=== PATIENT | female | born 1940 | race Caucasian/White ===

== ENCOUNTER → 2018-08-06 09:47 | Outpatient (CLI) | payer OTHER, SELFPAY ==
[2018-08-06 10:17] LABS: Add Manual Diff / Slide Review NO; Basophils Percent Auto 0.5 % (0-2); Eosinophils Percent Auto 4.4 % (2-4); Hematocrit 40.3 % (36-46); Hemoglobin 13.5 g/dL (12.0-16.0); Lymphocytes Percent Auto 20.2 % (25-40); Mean Corpuscular HGB Conc 33.5 % (30-36); Mean Corpuscular Hemoglobin 31.3 PG (26-34); Mean Corpuscular Volume 93.4 fL (80-100); Monocytes Percent Auto 7.4 % (3-14); Neutrophils Absolute Auto 4000 /uL (3000-5900); Neutrophils Percent Auto 67.5 % (50-75); Platelet Count 195 X10^3/uL (150-400); Red Blood Cell Count 4.32 X10^6/uL (4.0-5.2)
[2018-08-06 11:21] LABS: Alanine Aminotransferase 19 IU/L (9-52); Albumin 3.7 g/dL (3.5-5.0); Albumin Globulin Ratio 1.2 (1.0-2.8); Alkaline Phosphatase 60 U/L (38-126); Aspartate Aminotransferase 20 IU/L (14-36); BUN Creatinine Ratio 21.1 (6-22); Bilirubin Total 0.5 mg/dL (0.2-1.3); Blood Urea Nitrogen 19 mg/dL (7-17); Calcium 9.4 mg/dL (8.4-10.2); Carbon Dioxide 31 mmol/L (22-32); Chloride 106 mmol/L (98-107); Estimated Glomerular Filt Rate > 60.0 mL/min (>60); Globulin 3.1 g/dL (1.7-4.1); Glucose 78 mg/dL (80-110); HEMOLYSIS < 15 (0-50); Potassium 5.2 mmol/L (3.4-5.1); Sodium 145 mmol/L (137-145); Total Protein 6.8 g/dL (6.3-8.2)
== END ==
PROVIDERS: PCP Physician Assistant; Visit Provider Nurse Practitioner Gerontology
DX: C50.912 Malignant neoplasm of unspecified site of left female breast (principal)
CPT/HCPCS: 36415; 80053; 85025

== ENCOUNTER 2018-08-14 13:04 | Oncology outpatient (ONC) | payer OTHER, SELFPAY ==
--- NOTE | 2018-08-14 13:33 | ONC.APRN.PN ---
PN -Subjective Interval history: The patient is a 78 year old Female who is being seen in the clinic 08/14/2018. 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 In clinical remission since her diagnosis was made back on March 2017. Patient started tamoxifen in the adjuvant setting on July 2017. Patient presents today for routine triage. Clinically patient's new chief complaints since her last visit include: None. Patient denies any side effects to her tamoxifen since she started it in June 2017. Specifically denying any chest pains, shortness of breath, no leg swelling or cramping. No hot flashes or night sweats. No vaginal bleeding or abnormal vaginal discharge. Patient's chronic chief complaints at this time include: urinary leakage. For which she has seen a urologist who recommended taking medicine for it but I dont want to do that. 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 Diagnosis/Surgery: -03/11/2017. Core needle biopsy of the left breast 5 o'clock position. Pathology confirming invasive ductal carcinoma involving 2 biopsy cores. Manolo score was 6 of 9 (grade 2). Maximum tumor diameter was 3 mm and 4 mm. No evidence of angiolymphatic invasion no evidence of in situ disease. Immunostains were ER and WI was positive at 100% and 90% respectively HER-2 was negative. -05/08/2017. Partial mastectomy with sentinel node procedure. Patient's primary measured 20 mm in greatest diameter. Manolo grade was 2. Mitotic rate 1. No LV I was seen. Surgical margins were clear. Closest was 1 mm from the anterior remaining margins were greater than 10 mm. 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 Also measuring 20 mm. Cribriform and solid architecture. Necrosis seen. Nuclear grade 2. Surgical margins from DCIS were clear closest 1 mm from the anterior all others greater than 10 mm. One sentinel lymph node was identified negative for disease. Clinical staging workup, pretreatment: -01/10/2017 Bilateral screening mammogram: This reported heterogeneously dense breast tissue. The left breast 12:00 middle depth as an architectural distortion with indistinct margins. No other significant masses calcifications or other findings seen in either breast. -01/29/2017: Ultrasound left breast and left axilla. This identified a hypoechoic irregular mass measuring 10 mm x 13 mm x 13 mm. Mass correlated with the mammogram findings. Increased vascularity in surrounding tissue noted. No abnormalities were seen in the left axilla -03/22/2017 whole-body bone scan. Negative for metastatic bone disease. Prognosis: -06/04/2017. Predict [facility] online: 5 and 10 year overall survival 82 and 57% respectively. -Patient reports no desire to contemplate chemotherapy. Therefore Oncotype DX was not ordered. -07/08/2017 echocardiogram. EF at 60-65%. No significant valvular heart disease. Adjuvant therapy: -07/16/2017-Present. Tamoxifen 20 mg daily ?5 years. 2) Osteopenia: Patient last bone density was in 2011. Patient currently on calcium and vitamin D. Home Medications and Allergies Home Medications Medication Instructions Recorded Confirmed Type calcium acetate 600 mg PO Q DAY #0 06/15/16 08/14/18 History glucosamine sulfate [Genicin] 500 mg PO #0 06/15/16 History tamoxifen 20 mg PO QDAY #90 tab 11/14/17 Rx [AREDS] PO Q DAY #0 02/18/18 History Allergies Allergy/AdvReac Type Severity Reaction Status Date / Time morphine [MORPHINE] Allergy Unknown ITCHING Unverified 02/19/18 11:50 adhesive tape [ADHESIVE TAPE] AdvReac Unknown RASH Unverified 02/19/18 11:50 Exam - Constitutional positive no acute distress, positive average body habitus - Routine HEENT Exam Eye: Present: conjunctivae pink. Absent: conjunctival icterus, scleral injection ENT: Present: mucous membranes moist, oropharynx clear - Routine Neck Exam Present: supple. Absent: lymphadenopathy - Routine Chest/Breast/Axilla Exam Chest wall exam standard: Absent: tenderness, mass Breast: Absent: tenderness, mass Axillae: Absent: lymphadenopathy, mass, tenderness - Routine Respiratory Exam Present: Clear to auscultation bilaterally. Absent: rales, rhonchi, wheezes - Routine Cardiovascular Exam Present: RRR, S1, S2. Absent: murmur, gallop, rubs, JVD - Routine Abdominal Exam Present: soft, normoactive bowel sounds. Absent: tenderness, distended, organomegaly, mass - Routine Extremities Exam Absent: edema, calf tenderness - Routine Skin Exam Present: intact, normal turgor. Absent: petechiae, rash - Routine Neurological Exam Present: alert, oriented X3 - Routine Psychiatric Exam Present: normal affect Assessment and Plan (1) Cancer of left breast Current visit: No Status: Acute The pt is a 78-year-old female with a history of stage II node negative ER positive, her 2-breast cancer. Reassuringly, on exam today no clinical signs or symptoms to suggest disease recurrence. Overall patient reports she is feeling well, tolerating tamoxifen with no adverse effects. Specifically, no vaginal bleeding, no edema. She will be due for annual bilateral screening mammogram in February of 2019. I do not see a recent bone density screen, most recent in her medical record is 2011 demonstrating osteopenia. Patient did take Fosamax for a period of time however stopped a few years ago. We will order her a bone density screen. CBC, CMP unremarkable. Return to clinic in 6 months time for provider visit, CBC, CMP. We will also review the above tests mammogram and bone density screen at this visit. Patient verbalizes understanding and agrees with the above plan of care.
[2018-08-14 14:13] VITALS: BP 134/79; PULSE 77; RESP 18; TEMP 35.7; O2SAT 100
== END 2018-08-15 12:00 ==
LOC: ONC 13:07
PROVIDERS: Family Provider Physician Assistant; PCP Physician Assistant; Visit Provider Nurse Practitioner Gerontology
DX: C50.512 Malignant neoplasm of lower-outer quadrant of left female breast (principal); Z17.0 Estrogen receptor positive status [ER+]; Z79.810 Long term (current) use of selective estrogen receptor modulators (SERMs)
CPT/HCPCS: 99214

== ENCOUNTER → 2019-01-14 14:11 | Outpatient (CLI) | payer OTHER, SELFPAY | PROVIDERS: PCP Physician Assistant; Visit Provider Physician Assistant | DX: M85.852 Other specified disorders of bone density and structure, left thigh (principal); Z78.0 Asymptomatic menopausal state; Z85.3 Personal history of malignant neoplasm of breast; Z90.722 Acquired absence of ovaries, bilateral; Z82.62 Family history of osteoporosis | CPT/HCPCS: 77080 ==

== ENCOUNTER → 2019-02-18 17:57 | Outpatient (CLI) | payer OTHER, SELFPAY | PROVIDERS: PCP Physician Assistant; Visit Provider Nurse Practitioner Gerontology ==

== ENCOUNTER → 2019-02-25 16:06 | Outpatient (CLI) | payer OTHER, SELFPAY ==
--- NOTE | 2019-02-25 | DI.MG.S_ITS ---
BILATERAL DIGITAL SCREENING MAMMOGRAM 3D/2D WITH CAD: 02/25/2019 CLINICAL: Routine screening. Personal history of left breast cancer. Family history of breast cancer. Comparison is made to exams dated: 02/12/2018 mammogram, 01/10/2017 mammogram, and 12/30/2015 mammogram - [facility]. The tissue of both breasts is heterogeneously dense. This may lower the sensitivity of mammography. Current study was also evaluated with a Computer Aided Detection (CAD) system. There are benign post operative findings in the left breast. No significant masses, calcifications, or other findings are seen in either breast. There has been no significant interval change. IMPRESSION: There is no mammographic evidence of malignancy. A 1 year screening mammogram is recommended. This exam was interpreted at Station ID: [id number]. NOTE: For mammograms, a report in lay terms will be sent to the patient. Approximately 15% of breast malignancies will not be visualized mammographically. In the management of a palpable breast mass, a negative mammogram must not discourage biopsy of a clinically suspicious lesion. Electronically Signed By: Wen arrieta/mahesh:02/25/2019 16:52:51 copy to: KAILA CARDONA letter sent: Normal Exam ACR BI-RADS Category 2: Benign Finding(s) 3342F
== END ==
PROVIDERS: PCP Physician Assistant; Visit Provider Physician Assistant
DX: Z12.31 Encounter for screening mammogram for malignant neoplasm of breast (principal); Z85.3 Personal history of malignant neoplasm of breast
CPT/HCPCS: 77063; 77067

== ENCOUNTER → 2020-06-04 12:55 | Outpatient (CLI) | payer MEDICARE, OTHER, SELFPAY ==
--- NOTE | 2020-06-04 13:00 | DI.MG.S_ITS ---
BILATERAL DIGITAL SCREENING MAMMOGRAM 3D/2D WITH CAD POST LUMPECTOMY: 06/04/2020 CLINICAL: Routine screening. Personal history of left breast cancer. Family history of breast cancer. Comparison is made to exams dated: 02/25/2019 mammogram, 02/12/2018 mammogram, and 01/10/2017 mammogram - [facility]. The tissue of both breasts is heterogeneously dense. This may lower the sensitivity of mammography. Current study was also evaluated with a Computer Aided Detection (CAD) system. There are benign calcifications in the right breast. There also are benign post operative findings in the left breast. No significant masses, calcifications, or other findings are seen in either breast. There has been no significant interval change. IMPRESSION: There is no mammographic evidence of malignancy. A 1 year screening mammogram is recommended. This exam was interpreted at Station ID: [id number]. NOTE: For mammograms, a report in lay terms will be sent to the patient. Approximately 15% of breast malignancies will not be visualized mammographically. In the management of a palpable breast mass, a negative mammogram must not discourage biopsy of a clinically suspicious lesion. Electronically Signed By: Skylar summers/mahesh:06/06/2020 09:50:55 copy to: Kiara Pemberton letter sent: Normal Exam ACR BI-RADS Category 2: Benign Finding(s) 3342F
== END ==
PROVIDERS: PCP Student in an Organized Health Care Education/Training Program
DX: Z12.31 Encounter for screening mammogram for malignant neoplasm of breast (principal); Z85.3 Personal history of malignant neoplasm of breast; Z80.3 Family history of malignant neoplasm of breast
CPT/HCPCS: 77063; 77067

== ENCOUNTER → 2020-12-07 15:17 | Outpatient (CLI) | payer MEDICARE, OTHER, SELFPAY ==
[2020-12-07] MEDS: COVID-19 VACC #1, MRNA(MOD) 100 MCG/0.5 ML VIAL IM (15:22)
== END ==
PROVIDERS: PCP Student in an Organized Health Care Education/Training Program; Visit Provider Internal Medicine
DX: Z23 Encounter for immunization (principal)
CPT/HCPCS: 0011A; 91301

== ENCOUNTER → 2021-01-04 14:43 | Outpatient (CLI) | payer MEDICARE, OTHER, SELFPAY ==
[2021-01-04] MEDS: COVID-19 VACC #2, MRNA(MOD) 100 MCG/0.5 ML VIAL IM (14:52)
== END ==
PROVIDERS: PCP Student in an Organized Health Care Education/Training Program; Visit Provider Internal Medicine
DX: Z23 Encounter for immunization (principal)
CPT/HCPCS: 0012A; 91301

== ENCOUNTER → 2021-06-12 15:03 | Outpatient (CLI) | payer MEDICARE, OTHER, SELFPAY ==
--- NOTE | 2021-06-12 | DI.MG.S_ITS ---
BILATERAL DIGITAL SCREENING MAMMOGRAM 3D/2D WITH CAD: 06/12/2021 CLINICAL: Routine screening. Family history of breast cancer. Breast cancer. Comparison is made to exams dated: 06/04/2020 mammogram, 02/25/2019 mammogram, and 02/12/2018 mammogram - [facility]. The tissue of both breasts is heterogeneously dense. This may lower the sensitivity of mammography. Current study was also evaluated with a Computer Aided Detection (CAD) system. There is a possible new 0.7 cm oval equal density asymmetry in the left breast middle depth superior region seen on the mediolateral oblique view only. There are adjacent surgical clips and post-surgical scarring associated with the asymmetry. No other significant masses, calcifications, or other findings are seen in either breast. IMPRESSION: INCOMPLETE: NEEDS ADDITIONAL IMAGING EVALUATION The possible new 0.7 cm oval equal density asymmetry in the left breast is indeterminate. Additional views with possible ultrasound are recommended. This exam was interpreted at Station ID: [id number]. NOTE: For mammograms, a report in lay terms will be sent to the patient. Approximately 15% of breast malignancies will not be visualized mammographically. In the management of a palpable breast mass, a negative mammogram must not discourage biopsy of a clinically suspicious lesion. Electronically Signed By: Markel Ness M.D. at/:06/12/2021 15:47:02 copy to: Kiara Pemberton letter sent: Additional Imaging Needed ACR BI-RADS Category 0: Incomplete 3340F
== END ==
PROVIDERS: PCP Student in an Organized Health Care Education/Training Program; Referring Provider Internal Medicine Hematology & Oncology; Visit Provider Internal Medicine Hematology & Oncology
DX: Z12.31 Encounter for screening mammogram for malignant neoplasm of breast (principal); Z85.3 Personal history of malignant neoplasm of breast; Z80.3 Family history of malignant neoplasm of breast
CPT/HCPCS: 77063; 77067

== ENCOUNTER 2021-07-05 10:30 | Emergency (ER) | payer MEDICARE, OTHER, SELFPAY ==
[2021-07-05 10:41] VITALS: BP 155/75; PULSE 78; RESP 14; TEMP 36.5; O2SAT 98; BMI 29.5
[2021-07-05] MEDS: TET,DIPH,PERTUSS(ACELL),VAC/PF 0.5 ML SYRINGE IM (11:48)
--- NOTE | 2021-07-05 12:13 | ED_ITS ---
HPI - Fall <Shakeel Donato PA-C - Last Filed: 07/05/21 19:35> General Chief Complaint: Fall Stated Complaint: FALL/FOREHEAD & HAND GASHES Time Seen by Provider: 07/05/21 12:04 Source: patient Mode of arrival: Ambulatory History of Present Illness HPI Narrative: Amna presents today with chief complaint of a fall that she sustained earlier today [place]. She reports that she tripped over a slight elevation in the boards and fell forward. She hit her hand on a metal bar which her fingers and cut in between her fingers. She also hit her head on an elevated portion of the walkway. She was able to get up and get herself bandaged with her friends and then came here with her . She denies any loss of consciousness, vision changes, headache, nausea, vomiting or any other acute concerns or complaints. She is not on any blood thinners. She denies any chest pain, shortness of breath, palpitations before or after the fall. Related Data Home Medications Medication Instructions Recorded Confirmed calcium acetate(phosphat bind) 667 600 mg PO Q DAY #0 06/15/16 06/30/20 mg capsule glucosamine sulfate 500 mg capsule 500 mg PO DAILY #0 06/15/16 06/30/20 (Genicin) [AREDS] 1 cap PO Q DAY #0 02/18/18 06/30/20 ibuprofen 600 mg tablet 600 mg PO 3XW 06/30/20 06/30/20 Previous Rx's Medication Instructions Recorded tamoxifen 20 mg tablet 20 mg PO QDAY #90 tab 12/03/19 Allergies Allergy/AdvReac Type Severity Reaction Status Date / Time morphine [MORPHINE] Allergy Unknown ITCHING Verified 07/05/21 10:40 adhesive tape [ADHESIVE TAPE] AdvReac Unknown RASH Verified 07/05/21 10:40 Review of Systems <Shakeel Donato PA-C - Last Filed: 07/05/21 19:35> Review of Systems Narrative: As per HPI Patient History <Shakeel Donato PA-C - Last Filed: 07/05/21 19:35> Social History Smoking Status: Unknown if ever smoked Smoking Status: Unknown if ever smoked alcohol intake frequency: 0-2 drinks per day Substance Use Type: does not use Exam <Shakeel Donato PA-C - Last Filed: 07/05/21 19:35> Narrative Exam Narrative: Exam Narrative: Const General: cooperative, healthy appearing, comfortable, no acute distress, well developed and well groomed Nutritional Appearance: average body habitus Orientation: alert and oriented x3 HENAZ Head: Large linear laceration just above right eyebrow. Approximately 5 cm in length and 1 cm deep. Ears: hearing grossly normal bilaterally, no hemotympanum Nose: external nose normal and nares normal Face and sinus: normal facial exam Neck Neck: normal visual inspection and supple Resp Effort & Inspection: normal respiratory effort, able to speak in complete sentences, no audible wheezes, not labored, no nasal flaring and no respiratory distress Extremities Upper extremities exposed. She has the 1.5 cm laceration in between her left 4th and 5th digits. No significant bony tenderness. Capillary refill is normal. Distal sensation is intact. Full strength and range of motion of her digits. Neuro General: alert, oriented x3, gait normal, tone normal and moves all extremities, cranial nerves 2-12 grossly intact, normal coordination of upper extremities normal finger to nose. Cognition: normal cognition Speech: speech normal Gait: normal gait Psych Appearance: grossly normal and well kempt Mental Status: mental status grossly normal Speech and Movement: speech and movement normal Mood: congruent mood Affect: normal affect Initial Vital Signs Initial Vital Signs: Vital Signs Temperature 97.7 F 07/05/21 10:41 Pulse Rate 78 07/05/21 10:41 Respiratory Rate 14 07/05/21 10:41 Blood Pressure 155/75 H 07/05/21 10:41 Pulse Oximetry 98 07/05/21 10:41 <Elena aTylor MD - Last Filed: 07/06/21 10:46> Initial Vital Signs Initial Vital Signs: Vital Signs Temperature 97.7 F 07/05/21 10:41 Pulse Rate 78 07/05/21 10:41 Respiratory Rate 14 07/05/21 10:41 Blood Pressure 155/75 H 07/05/21 10:41 Pulse Oximetry 98 07/05/21 10:41 Procedures <Shakeel Donato PA-C - Last Filed: 07/05/21 19:35> Laceration Repair Laceration 1: Site: face Side (If applicable): right Size (cm): 5 Description: linear Depth: simple, single layer Local Anesthetic: lidocaine 1% and with epi Amount of anesthesia used (mL): 6 Skin layer closed with: nylon Size (cm): 5-0 Number of sutures: 7 Technique: simple, interrupted Course <Shakeel Donato PA-C - Last Filed: 07/05/21 19:35> Orders Ordered: Discontinued Medications Bacitracin (Bacitracin Oint 0.9 Gm Pckt) 1 applic TOP NOW ONE Stop: 07/05/21 13:36 Last Admin: 07/05/21 13:37 Dose: 1 applic Documented by: ATAYLOR Diphtheria/Tetanus/Acell Pertussis (Tet,Diph,Pertuss(Acell),Vac/Pf 0.5 Ml Syringe) 0.5 ml IM .ONCE ONE Stop: 07/05/21 11:35 Last Admin: 07/05/21 11:48 Dose: 0.5 ml Documented by: ATAYLOR Lidocaine/Epinephrine (Lidocaine 1% W/Epi) 4 ml INJ INTRA-OP ONE Stop: 07/05/21 12:22 Last Admin: 07/05/21 12:25 Dose: 4 ml Documented by: ATATYOR Vital Signs Vital signs: Vital Signs - 8 hr 07/05/21 13:43 Pulse Rate 67 Respiratory Rate 16 Blood Pressure 143/78 H Pulse Oximetry 99 <Elena Taylor MD - Last Filed: 07/06/21 10:46> Orders Ordered: Discontinued Medications Bacitracin (Bacitracin Oint 0.9 Gm Pckt) 1 applic TOP NOW ONE Stop: 07/05/21 13:36 Last Admin: 07/05/21 13:37 Dose: 1 applic Documented by: ATAYLOR Diphtheria/Tetanus/Acell Pertussis (Tet,Diph,Pertuss(Acell),Vac/Pf 0.5 Ml Syringe) 0.5 ml IM .ONCE ONE Stop: 07/05/21 11:35 Last Admin: 07/05/21 11:48 Dose: 0.5 ml Documented by: ATAYLOR Lidocaine/Epinephrine (Lidocaine 1% W/Epi) 4 ml INJ INTRA-OP ONE Stop: 07/05/21 12:22 Last Admin: 07/05/21 12:25 Dose: 4 ml Documented by: ATADENISHA Vital Signs Vital signs: Vital Signs - 8 hr 07/05/21 13:43 Pulse Rate 67 Respiratory Rate 16 Blood Pressure 143/78 H Pulse Oximetry 99 MDM - Fall <Shakeel Donato PA-C - Last Filed: 07/05/21 19:35> [facility] Narrative Medical decision making narrative: I considered getting a CT of her head but after discussion of this with the patient we elected not to at this time. She does not have any underlying bony tenderness, has a normal neurologic examination, does not having a headache, and had no loss of consciousness. She is not on any blood thinners. There is no physical examination evidence of basilar skull fracture with no rhinorrhea or hemotympanum. I considered syncope but patient's symptoms are not consistent with this at this time. History is very suggestive of a mechanical ground level fall. Strict ER return precautions were discussed with the patient. Patient verbalizes understanding and agrees to plan and has no further concerns at this time. Thank you A [id number] system was used with the dictation of this note. Please disregard any spelling or grammatical errors. Discharge Plan Departure Patient Disposition: Home Clinical Impression: Facial laceration Qualifiers: Encounter type: initial encounter Qualified Code(s): S01.81XA - Laceration without foreign body of other part of head, initial encounter Laceration of hand, left Qualifiers: Encounter type: initial encounter Foreign body presence: without foreign body Qualified Code(s): S61.412A - Laceration without foreign body of left hand, initial encounter Activity Restrictions/Additional Instructions: It was very nice to meet you this afternoon. Please monitor for signs of infection which include increased redness, swelling, pain, headache, fever. You experience any of these please return for re-evaluation. Otherwise, follow up with PCP in 5 days for suture removal of face and 10 days for suture removal of hand. Thank you Shakeel Donato PA-C Prescriptions: No Action glucosamine sulfate [Genicin] 500 MG capsule 500 mg PO DAILY Qty: 0 RF: 0 calcium acetate(phosphat bind) 667 MG capsule 600 mg PO Q DAY Qty: 0 RF: 0 [AREDS] 1 cap PO Q DAY Qty: 0 RF: 0 tamoxifen 20 MG tablet 20 mg PO QDAY Qty: 90 RF: 3 ibuprofen 600 mg Tablet 600 mg PO 3XW RF: 0 Referrals: Kiara Pemberton PA-C [Primary Care Provider] - <Elena Taylor MD - Last Filed: 07/06/21 10:46> Cosign ED Attending Cosignature Attestation: I was immediately available in the department for consultation throughout this patient's visit. I agree with documentation as above. Elena Taylor MD
[2021-07-05] MEDS: LIDOCAINE 1% W/EPI 4 ML INJ (12:25)
[2021-07-05] MEDS: BACITRACIN OINT 0.9 GM PCKT 1 APPLIC TOP (13:37)
[2021-07-05 13:43] VITALS: BP 143/78; PULSE 67; RESP 16; O2SAT 99
== END 2021-07-05 13:45 | disposition home or self-care (01) ==
PROVIDERS: Emergency Provider Physician Assistant; PCP Student in an Organized Health Care Education/Training Program
DX: S01.81XA Laceration without foreign body of other part of head, initial encounter (principal); S61.412A Laceration without foreign body of left hand, initial encounter; W19.XXXA Unspecified fall, initial encounter; Z23 Encounter for immunization; R92.8 Other abnormal and inconclusive findings on diagnostic imaging of breast; C50.912 Malignant neoplasm of unspecified site of left female breast; N64.89 Other specified disorders of breast
CPT/HCPCS: 12013; 76642; 77065; 90471; 99283; G0279; 90715

== ENCOUNTER → 2021-07-05 13:24 | Outpatient (CLI) | payer MEDICARE, OTHER, SELFPAY ==
--- NOTE | 2021-07-05 | DI.MG.S_ITS ---
UNILATERAL LEFT DIGITAL DIAGNOSTIC MAMMOGRAM 3D/2D WITH ADDITIONAL VIEWS: 07/05/2021 CLINICAL: Additional evaluation requested from prior study. Comparison is made to exams dated: 06/12/2021 mammogram, 06/04/2020 mammogram, and 02/25/2019 mammogram - [facility]. The tissue of left breast is heterogeneously dense. This may lower the sensitivity of mammography. Decreased conspicuity of the 0.7 cm oval equal density asymmetry in the left breast seen on the MLO only, when compared with most recent screening mammogram. There are surgical clips and a post-surgical scar associated with the asymmetry. No other significant masses or calcifications are seen in the breast. IMPRESSION: INCOMPLETE: NEEDS ADDITIONAL IMAGING EVALUATION Decreased conspicuity of the 0.7 cm oval equal density asymmetry in the left breast. This is favored to represent scarring of fibroglandular tissue. An ultrasound is recommended for further evaluation. This exam was interpreted at Station ID: [id number]. NOTE: For mammograms, a report in lay terms will be sent to the patient. Approximately 15% of breast malignancies will not be visualized mammographically. In the management of a palpable breast mass, a negative mammogram must not discourage biopsy of a clinically suspicious lesion. Electronically Signed By: Bhupendra Mahoney M.D. jr/:07/05/2021 15:25:00 copy to: Kiara LEBRON BI-RADS Category 0: Incomplete 3340F
--- NOTE | 2021-07-05 13:25 | DI.US.S_ITS ---
LIMITED ULTRASOUND OF LEFT BREAST: 07/05/2021 CLINICAL: Patient returns today to evaluate an asymmetry in the left breast. Comparison is made to exams dated: 07/05/2021 mammogram, 06/12/2021 mammogram, 06/04/2020 mammogram, 02/25/2019 mammogram, 02/12/2018 mammogram, and 11/06/2017 mammogram - [facility]. Color flow and real-time ultrasound of the left breast 11-1 o'clock region were performed. Henson scale images of the real-time examination were reviewed. No sonographic correlate for the asymmetry in the left breast near the surgical lumpectomy bed. No significant abnormalities were seen sonographically in the left breast. IMPRESSION: PROBABLY BENIGN Asymmetry in the left breast near the lumpectomy site, seen only mammographically and decreased in conspicuity with spot compression. This is favored to represent fibroglandular tissue or perhaps scarring. However, this is not definitive and a follow-up mammogram in 6 months is recommended to demonstrate stability. This exam was interpreted at Station ID: [id number]. Electronically Signed By: Bhupendra Mahoney M.D. jr/:07/05/2021 15:27:50 copy to: Kiara Pemberton letter sent: Followup Recommended Ultrasound BI-RADS: 3 Probably benign
== END ==
PROVIDERS: PCP Student in an Organized Health Care Education/Training Program; Referring Provider Student in an Organized Health Care Education/Training Program; Visit Provider Student in an Organized Health Care Education/Training Program
DX: R92.8 Other abnormal and inconclusive findings on diagnostic imaging of breast (principal); C50.912 Malignant neoplasm of unspecified site of left female breast; N64.89 Other specified disorders of breast
CPT/HCPCS: 76642; 77065; G0279

== ENCOUNTER → 2022-02-06 12:03 | Outpatient (CLI) | payer MEDICARE, OTHER, SELFPAY ==
--- NOTE | 2022-02-06 | DI.MG.S_ITS ---
UNILATERAL LEFT DIGITAL DIAGNOSTIC MAMMOGRAM 3D/2D SHORT-TERM FOLLOW-UP POST LUMPECTOMY: 02/06/2022 CLINICAL: Short term follow up for the left breast. Comparison is made to exams dated: 07/05/2021 mammogram, 06/12/2021 mammogram, 06/04/2020 mammogram, 07/05/2021 ultrasound, 02/25/2019 mammogram, and 02/12/2018 mammogram - [facility]. The tissue of left breast is heterogeneously dense. This may lower the sensitivity of mammography. There is an asymmetry in the left breast middle depth superior region seen on the mediolateral oblique view only. This is not significantly changed and was not seen on the prior ultrasound. There are surgical clips and a post-surgical scar near the asymmetry. No other significant masses or calcifications are seen in the breast. IMPRESSION: PROBABLY BENIGN The asymmetry in the left breast resembles fibroglandular tissue and is probably benign. A follow-up mammogram in 6 months is recommended to demonstrate stability. Patient will also be due for right breast mammogram at that time. Exam findings were conveyed to the patient. This exam was interpreted at Station ID: [id number]. NOTE: For mammograms, a report in lay terms will be sent to the patient. Approximately 15% of breast malignancies will not be visualized mammographically. In the management of a palpable breast mass, a negative mammogram must not discourage biopsy of a clinically suspicious lesion. Electronically Signed By: Irwin Alvarado M.D. [facility]/:02/06/2022 12:38:42 copy to: Kiara Pemberton letter sent: Followup Recommended ACR BI-RADS Category 3: Probably benign [id number]
== END ==
PROVIDERS: PCP Student in an Organized Health Care Education/Training Program; Referring Provider Internal Medicine Hematology & Oncology; Visit Provider Internal Medicine Hematology & Oncology
DX: R92.8 Other abnormal and inconclusive findings on diagnostic imaging of breast (principal); C50.912 Malignant neoplasm of unspecified site of left female breast; N64.89 Other specified disorders of breast
CPT/HCPCS: 77065; G0279

== ENCOUNTER → 2022-04-11 09:36 | Outpatient (CLI) | payer MEDICARE, OTHER, SELFPAY ==
--- NOTE | 2022-04-11 | DI.RAD.S_ITS ---
PROCEDURE: XR KNEE RT 3V INDICATIONS: Pain in right knee TECHNIQUE: 3 views of the knee were acquired. COMPARISON: Located Within [facility], , KNEE 3V RIGHT, 03/17/2015, 13:27. FINDINGS: Moderate tricompartmental joint space narrowing with moderate-sized marginal osteophytes. Subchondral sclerosis in the lateral tibial plateau. Th no knee joint effusion. Fabella noted. Regional soft tissues normal. ere is also subchondral sclerosis along the articular surface of the patella. IMPRESSION: Moderate tricompartmental osteoarthritis Dictated by: Bhupendra Mahoney M.D. on 04/11/2022 at 12:09 Approved by: Bhupendra Mahoney M.D. on 04/11/2022 at 12:11
== END ==
PROVIDERS: PCP Student in an Organized Health Care Education/Training Program; Referring Provider Student in an Organized Health Care Education/Training Program; Visit Provider Student in an Organized Health Care Education/Training Program
DX: M17.11 Unilateral primary osteoarthritis, right knee (principal); M25.561 Pain in right knee; G89.29 Other chronic pain
CPT/HCPCS: 73562

== ENCOUNTER → 2022-07-12 11:47 | Outpatient (CLI) | payer MEDICARE, OTHER, SELFPAY ==
--- NOTE | 2022-07-12 | DI.MG.S_ITS ---
BILATERAL DIGITAL DIAGNOSTIC MAMMOGRAM 3D/2D SHORT-TERM FOLLOW-UP: 07/12/2022 CLINICAL: Short term follow up of the left breast, due for bilateral imaging. Comparison is made to exams dated: 07/05/2021 mammogram, 02/06/2022 mammogram, 06/12/2021 mammogram, and 06/04/2020 mammogram - [facility]. Both breasts are heterogeneously dense, which may obscure small masses (category c / 51-75% glandular tissue). The asymmetry in the left breast on the screening mammogram from 06/12/21 is not seen on additional views. No other significant masses, calcifications, or other findings are seen in either breast. IMPRESSION: BENIGN The left breast asymmetry seen on the screening mammogram from 2020 likely respresents superimposed fibroglandular tissue and is benign. There is no mammographic evidence of malignancy. A 1 year screening mammogram is recommended. This exam was interpreted at Station ID: [id number]. NOTE: For mammograms, a report in lay terms will be sent to the patient. Approximately 15% of breast malignancies will not be visualized mammographically. In the management of a palpable breast mass, a negative mammogram must not discourage biopsy of a clinically suspicious lesion. Electronically Signed By: Wen Ochoa M.D. lk/:07/12/2022 12:36:27 copy to: Kiara Pemberton letter sent: Normal Exam ACR BI-RADS Category 2: Benign Finding(s) [id number]
== END ==
PROVIDERS: PCP Student in an Organized Health Care Education/Training Program; Referring Provider Internal Medicine Hematology & Oncology; Visit Provider Internal Medicine Hematology & Oncology
DX: R92.8 Other abnormal and inconclusive findings on diagnostic imaging of breast (principal)
CPT/HCPCS: 77066; G0279

== ENCOUNTER → 2022-10-29 14:25 | Outpatient (CLI) | payer MEDICARE, OTHER, SELFPAY ==
--- NOTE | 2022-10-29 | DI.RAD.S_ITS ---
PROCEDURE: XR LUMBAR SPINE 2-3V INDICATIONS: right-sided sciatica with leg weakness TECHNIQUE: 3 views of the lumbar spine were acquired. COMPARISON: None. FINDINGS: Bones: 5 [id number]-[id number] vertebrae are present. Moderate dextroscoliosis centered at the L1-L2 level. Moderate multilevel disc height loss with endplate sclerosis and spurring. Moderate facet joint arthropathy L4-L5 and L5-S1. Bones are osteopenic.. No vertebral body compression fractures. No suspicious bony lesions. Soft tissues: Overlying bowel gas pattern is normal. No suspicious soft tissue calcifications. IMPRESSION: 1. Moderate dextroscoliosis. 2. Multilevel lumbar spine spondylosis. Dictated by: Shakeel Tafoya [facility] Interpreted: Chacorta Kimble MD on 10/29/2022 at 14:59 Transcribed by: ASIYA on 10/29/2022 at 15:00 Approved by: Chacorta Kimble M.D. on 10/29/2022 at 17:53
== END ==
PROVIDERS: PCP Student in an Organized Health Care Education/Training Program; Referring Provider Student in an Organized Health Care Education/Training Program; Visit Provider Student in an Organized Health Care Education/Training Program
DX: M54.31 Sciatica, right side (principal); M47.816 Spondylosis without myelopathy or radiculopathy, lumbar region; M47.817 Spondylosis without myelopathy or radiculopathy, lumbosacral region; M41.9 Scoliosis, unspecified
CPT/HCPCS: 72100

== ENCOUNTER 2022-11-21 10:36 | Emergency (ER) | payer MEDICARE, OTHER, SELFPAY ==
[2022-11-21 10:48] VITALS: BP 128/66; PULSE 101; RESP 15; TEMP 36.4; O2SAT 99; BMI 29.5
--- NOTE | 2022-11-21 10:51 | DI.RAD.S_ITS ---
PROCEDURE: XR HIP W PEL IF DONE LT 2V INDICATIONS: fall yesterday with groin pain now TECHNIQUE: AP pelvis with lateral view(s) of the left hip(s). COMPARISON: None. FINDINGS: Bones: Mildly displaced left obturator ring fracture. No suspicious bony lesions. Mild bilateral hip joint space narrowing and periarticular osteophyte formation. Soft tissues: The visualized bowel gas pattern is normal. No suspicious soft tissue calcifications. IMPRESSION: 1. Left obturator ring fracture. 2. Bilateral hip osteoarthritis. Dictated by: Lenora Prieto M.D. on 11/21/2022 at 11:09 Approved by: Lenora Prieto M.D. on 11/21/2022 at 11:11
--- NOTE | 2022-11-21 14:23 | DI.RAD.S_ITS ---
PROCEDURE: XR LUMBAR SPINE 2-3V INDICATIONS: Fall with left obturator ring fracture TECHNIQUE: 3 views of the lumbar spine were acquired. COMPARISON: [facility], , XR LUMBAR SPINE 2-3V, 10/29/2022, 14:33. FINDINGS: Bones: 5 [id number] vertebrae are present. There is loss of normal lumbar lordosis. Mild rightward curvature of the upper lumbar spine. Multilevel disc space narrowing and endplate osteophyte formation. Facet hypertrophy throughout the mid and lower lumbar spine. No vertebral body compression fractures. No suspicious bony lesions. Soft tissues: Overlying bowel gas pattern is normal. No suspicious soft tissue calcifications. IMPRESSION: Multilevel degenerative disc and facet disease. No acute fracture. No osseous lesion. If symptoms and/or clinical suspicion for pathology persist, further assessment with repeat, or advanced imaging (e.g., CT, MRI, or bone scan) may be helpful for further assessment. Dictated by: Lenora Prieto M.D. on 11/21/2022 at 14:57 Approved by: Lenora Prieto M.D. on 11/21/2022 at 14:58
--- NOTE | 2022-11-21 14:32 | ED_ITS ---
HPI - Fall <Nayeli Marcus [facility] - Last Filed: 11/21/22 15:11> General Chief Complaint: Fall Stated Complaint: fell T-1 LT hip/groin painfull/LT shoulder hit hea Time Seen by Provider: 11/21/22 14:10 Source: patient Mode of arrival: Wheelchair History of Present Illness HPI Narrative: This is an 82-year-old female history of breast cancer on tamoxifen, scoliosis, osteoarthritis who presents to the emergency department today complaining of a mechanical fall yesterday onto her left side with left-sided hip pain and groin pain. 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 She denies any new urinary symptoms including frequency, urgency, retention or incontinence. Denies any weakness in her extremities, denies sensation changes headache, photophobia,, dizziness lightheadedness denies any upper extremity or chest pain, no range of motion tenderness moving all of her extremities except for left leg. States it is painful with movement but she is able to ambulate. She did not have loss of consciousness, not had any nausea, vomiting, vision changes or other complaint. She is not anticoagulated. Related Data Home Medications Medication Instructions Recorded Confirmed calcium acetate(phosphat bind) 667 600 mg PO Q DAY ##0 06/15/16 08/13/22 mg capsule glucosamine sulfate 500 mg capsule 500 mg PO DAILY ##0 06/15/16 08/13/22 (Genicin) [AREDS] 1 cap PO Q DAY ##0 02/18/18 08/13/22 ibuprofen 600 mg tablet 600 mg PO 3XW 06/30/20 08/13/22 cholecalciferol (vitamin D3) 50 50 mcg PO DAILY 02/12/22 08/13/22 mcg (2,000 unit) capsule (Vitamin D3) aspirin 81 mg capsule 81 mg PO DAILY 08/13/22 08/13/22 Previous Rx's Medication Instructions Recorded tamoxifen 20 mg tablet 20 mg PO QDAY #90 tabs 08/13/22 Allergies Allergy/AdvReac Type Severity Reaction Status Date / Time morphine [MORPHINE] Allergy Unknown ITCHING Verified 11/21/22 10:48 adhesive tape [ADHESIVE TAPE] AdvReac Unknown RASH Verified 11/21/22 10:48 Review of Systems <LISA Craig - Last Filed: 11/21/22 15:11> Review of Systems ROS Unobtainable: All systems reviewed & are unremarkable except as noted in HPI and below Patient History <LISA Craig - Last Filed: 11/21/22 15:11> Social History Smoking Status: Unknown if ever smoked Smoking Status: Unknown if ever smoked alcohol intake frequency: 0-2 drinks per day Substance Use Type: does not use Exam <LISA Craig - Last Filed: 11/21/22 15:11> Narrative Exam Narrative: Reviewed vitals signs and nursing notes. General: cooperative, comfortable, in no acute distress, well groomed HEENT: symmetrical facial expressions, moist mucous membranes, PERRLA, EOMI, full range of motion of neck without C-spine tenderness to palpation, supple, no anterior cervical lymphadenopathy, tenderness over mastoids or ecchymosis Cardiovascular: regular rate and rhythm, no peripheral edema, warm extremities on my exam, patient's heart rate was 84 Respiratory: normal effort, able to speak in complete sentences, without wheezing, stridor, or abnormal breath sounds. No retractions or tachypnea. GI: abdomen soft, nontender to palpation, nondistended, without masses, rebound tenderness or exquisite tenderness with exam. MSK: moves all extremities, neurovascularly intact, no weakness, normal tone, patient is unable to left left leg up, complains of left groin pain with weight, tenderness to soft tissue to the left of her Thoracic/lumbar junction, notable scoliosis, lower extremities are neurovascularly intact, full range of motion without C-spine tenderness to palpation left trapezius muscle tension, no tenderness along upper thoracic or lower spine Skin: brisk capillary refill, without pallor or erythema Neuro: normal speech and cognition, A&O x3, ambulatory, clear speech Psych: mental status is grossly normal, congruent mood, normal affect, pleasant and cooperative Initial Vital Signs Initial Vital Signs: Vital Signs Temperature 97.6 F 11/21/22 10:48 Pulse Rate 101 H 11/21/22 10:48 Respiratory Rate 15 11/21/22 10:48 Blood Pressure 128/66 11/21/22 10:48 Pulse Oximetry 99 11/21/22 10:48 Oxygen Delivery Method 11/21/22 10:48 <Yazan Coleman DO - Last Filed: 11/21/22 15:23> Initial Vital Signs Initial Vital Signs: Vital Signs Temperature 97.6 F 11/21/22 10:48 Pulse Rate 101 H 11/21/22 10:48 Respiratory Rate 15 11/21/22 10:48 Blood Pressure 128/66 11/21/22 10:48 Pulse Oximetry 99 11/21/22 10:48 Oxygen Delivery Method 11/21/22 10:48 Course <LISA Craig - Last Filed: 11/21/22 15:11> Orders Ordered: ED Orders 11/21/22 10:51 XR hip w pel if done LT 2V Stat 11/21/22 14:23 XR lumbar spine 2-3V Stat Discontinued Medications Acetaminophen (Acetaminophen 325 Mg Tablet) 650 mg PO NOW ONE Stop: 11/21/22 14:24 Last Admin: 11/21/22 14:42 Dose: 650 mg Documented By: HOMER Ketorolac Tromethamine (Ketorolac 10 Mg Tablet) 10 mg PO NOW ONE Stop: 11/21/22 14:24 Last Admin: 11/21/22 14:43 Dose: 10 mg Documented By: HOMER Lidocaine (Lidocaine Patch 1 Each Adh..Patch) 1 each TOP NOW ONE Stop: 11/21/22 14:24 Last Admin: 11/21/22 14:43 Dose: 1 each Documented By: HOMER Vital Signs Vital signs: Vital Signs - 8 hr 11/21/22 10:48 11/21/22 15:02 Temperature 97.6 F Pulse Rate 101 H 89 Respiratory Rate 15 17 Blood Pressure 128/66 134/76 Pulse Oximetry 99 99 Oxygen Delivery Method Room Air <Yazan Coleman DO - Last Filed: 11/21/22 15:23> Orders Ordered: ED Orders 11/21/22 10:51 XR hip w pel if done LT 2V Stat 11/21/22 14:23 XR lumbar spine 2-3V Stat Discontinued Medications Acetaminophen (Acetaminophen 325 Mg Tablet) 650 mg PO NOW ONE Stop: 11/21/22 14:24 Last Admin: 11/21/22 14:42 Dose: 650 mg Documented By: HOMER Ketorolac Tromethamine (Ketorolac 10 Mg Tablet) 10 mg PO NOW ONE Stop: 11/21/22 14:24 Last Admin: 11/21/22 14:43 Dose: 10 mg Documented By: HOMER Lidocaine (Lidocaine Patch 1 Each Adh..Patch) 1 each TOP NOW ONE Stop: 11/21/22 14:24 Last Admin: 11/21/22 14:43 Dose: 1 each Documented By: HOMER Vital Signs Vital signs: Vital Signs - 8 hr 11/21/22 10:48 11/21/22 15:02 Temperature 97.6 F Pulse Rate 101 H 89 Respiratory Rate 15 17 Blood Pressure 128/66 134/76 Pulse Oximetry 99 99 Oxygen Delivery Method Room Air MDM - Fall <Nayeli Vásquez Crew, [facility] - Last Filed: 11/21/22 15:11> Lab Data Labs: PROCEDURE:? XR LUMBAR SPINE 2-3V ? INDICATIONS:? Fall with left obturator ring fracture ? TECHNIQUE:? 3 views of the lumbar spine were acquired.? ? COMPARISON:? [facility], , XR LUMBAR SPINE 2-3V, 10/29/2022, 14:33. ? FINDINGS:? ? Bones:? 5 [id number]-[id number] vertebrae are present.? There is loss of normal lumbar lordosis.? Mild rightward curvature of the upper lumbar spine.? Multilevel disc space narrowing and endplate osteophyte formation.? Facet hypertrophy throughout the mid and lower lumbar spine.? No vertebral body compression fractures.? No suspicious bony lesions.? ? Soft tissues:? Overlying bowel gas pattern is normal.? No suspicious soft tissue calcifications.? ? ? IMPRESSION:? Multilevel degenerative disc and facet disease. No acute fracture. No osseous lesion. If symptoms and/or clinical suspicion for pathology persist, further assessment with repeat, or advanced imaging (e.g., CT, MRI, or bone scan) may be helpful for further assessment. ? ? Dictated by: Lenora Prieto M.D. on 11/21/2022 at 14:57 ? ? Approved by: Lenora Prieto M.D. on 11/21/2022 at 14:58 ? Imaging Data Hip with pelvis: Radiologist's Impression: PROCEDURE:? XR HIP W PEL IF DONE LT 2V ? INDICATIONS:? fall yesterday with groin pain now ? TECHNIQUE:? AP pelvis with lateral view(s) of the left hip(s).? ? COMPARISON:? None. ? FINDINGS:? ? Bones:? Mildly displaced left obturator ring fracture.? No suspicious bony lesions.? Mild bilateral hip joint space narrowing and periarticular osteophyte formation. ? Soft tissues:? The visualized bowel gas pattern is normal.? No suspicious soft tissue calcifications.? ? ? IMPRESSION:? 1. Left obturator ring fracture. 2. Bilateral hip osteoarthritis. ? Dictated by: Lenora Prieto M.D. on 11/21/2022 at 11:09 ? ? Approved by: Lenora Prieto M.D. on 11/21/2022 at 11:11 ? Treatment and disposition Social Determinants of Health that impact treatment or disposition: none Shared decision making:: disposition and followup MDM Narrative Medical decision making narrative: This is an 82-year-old female history of breast cancer on tamoxifen, scoliosis, osteoarthritis who presents to the emergency department today complaining of a mechanical fall yesterday onto her left side with left-sided hip pain and groin pain. 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 She went to her physical therapist this morning for her scoliosis and she had increased left hip pain and was concerned about pelvis fracture. She has been ambulatory without weakness or sensation changes, urinary retention or incontinence. Multiple etiologies for patient's symptoms considered including, but not limited to: Muscle strain, hip fracture, pelvis fracture, compression fracture of lumbar spine, lumbar radiculopathy, close head injury, concussion, other musculoskeletal injury Imaging reviewed: Hip x-ray showing left obturator ring fracture and bilateral osteoarthritis lumbar x-ray without acute fracture, multilevel degenerative disc disease Patient's lumbar x-ray is negative for compression fracture or other acute injury showing degenerative disc disease. Left obturator ring fracture is mildly displaced, patient understands that this is not a surgical injury and she can weight bear as tolerated. Encouraged her to avoid exertional activity, follow-up with her physical therapist and her PCP for ongoing needs regarding this injury, and to return if she develops urinary retention, incontinence, pain, fever chills, weakness or other concern. Patient's symptoms improved over duration of stay with above-stated therapies. She was ambulatory, treated with Tylenol and p.o. Toradol with a lidocaine patch, she has ibuprofen and Tylenol Findings and discharge diagnosis discussed with patient/family followed by verbalization of understanding Return precautions discussed with patient/family whom verbalize understanding of diagnosis and plan Discharge Plan Departure Patient Disposition: Home Clinical Impression: Closed fracture of pubic ramus Qualifiers: Encounter type: initial encounter Laterality: left Qualified Code(s): S32.592A - Other specified fracture of left pubis, initial encounter for closed fracture DDD (degenerative disc disease) Qualifiers: Spinal region: lumbar Qualified Code(s): M51.36 - Other intervertebral disc degeneration, lumbar region Hip osteoarthritis Qualifiers: Osteoarthritis type: primary Laterality: bilateral Qualified Code(s): M16.0 - Bilateral primary osteoarthritis of hip Instructions: DI for Pelvic Fracture Activity Restrictions/Additional Instructions: *You have been diagnosed with a left pubic ramus ring fracture with mild displacement. Please follow-up with your physical therapist and your PCP as you heal from this injury. Use Tylenol and alternate with naproxen or ibuprofen as you tolerate. Please take with food and water, use lidocaine patches there helpful, try to avoid over stretching or any increased activity while this bone heals. Please void frequently and come into the emergency department if you are unable to void, develop a fever, weakness in your legs or other new concerning symptom. There are no mobility restrictions for this injury, you will be sore, can be painful, use a walker if it is helpful for stability, ice packs, please continue to see your physical therapist and follow-up with Dr. Norris as needed, no new injury evident on lumbar x-ray, there is a decent amount of arthritis, please remember to alternate medications or eat food with them to prevent stomach ache. *What to do: *Please continue to take your regular medications as directed. [ ] New medication prescriptions sent to your pharmacy: [ ] [ ] New medication written as a paper prescription [ x] No new medications given *Please follow up with your primary care provider in 2-3 days, call for an appoi ntment. Let them know you were seen in the Emergency Department and that we asked that you be seen for follow-up. We will electronically transmit a record of today's note if your PCP is in our system *If you do not have a primary care provider please contact [phone] to establish care with one of the [facility] primary care providers. *Return to Emergency Department if you should have any new, worsening, or concerning symptoms, such as [fever greater than 101F, chills, worsening pain, persistent vomiting or other bothersome symptoms]. Prescriptions: No Action glucosamine sulfate [Genicin] 500 MG capsule 500 mg PO DAILY Qty: 0 calcium acetate(phosphat bind) 667 MG capsule 600 mg PO Q DAY Qty: 0 [AREDS] 1 cap PO Q DAY Qty: 0 ibuprofen 600 mg Tablet 600 mg PO 3XW cholecalciferol (vitamin D3) [Vitamin D3] 50 mcg (2,000 unit) Capsule 50 mcg PO DAILY aspirin 81 mg Capsule 81 mg PO DAILY tamoxifen 20 MG tablet 20 mg PO QDAY Qty: 90 3RF Referrals: [facility] [Provider Group] Kiara Pemberton PA-C [Primary Care Provider] - Stand Alone Forms: Patient Portal/API <Yazan Coleman, - Last Filed: 11/21/22 15:23> Cosign ED Attending Cosignature Attestation: Dr Coleman Co-Sign Statement: I was available for consultation during this patient's emergency department visit. This chart is signed by myself for administrative purposes only. I did not have direct contact with this patient during this visit. They were seen independently by the APC.
[2022-11-21] MEDS: ACETAMINOPHEN 325 MG TABLET 650 MG PO (14:42)
[2022-11-21] MEDS: KETOROLAC 10 MG TABLET PO (14:43)
[2022-11-21] MEDS: LIDOCAINE PATCH 1 EACH ADH..PATCH TOP (14:43)
[2022-11-21 15:02] VITALS: BP 134/76; PULSE 89; RESP 17; O2SAT 99
[2022-11-21 15:28] VITALS: PULSE 84; RESP 17; O2SAT 99
== END 2022-11-21 15:29 | disposition home or self-care (01) ==
PROVIDERS: Emergency Provider Nurse Practitioner Critical Care Medicine; PCP Student in an Organized Health Care Education/Training Program
DX: S32.592A Other specified fracture of left pubis, initial encounter for closed fracture (principal); M51.36 Other intervertebral disc degeneration, lumbar region; W01.0XXA Fall on same level from slipping, tripping and stumbling without subsequent striking against object, initial encounter; Y92.511 Restaurant or cafe as the place of occurrence of the external cause
CPT/HCPCS: 72100; 73502; 99283

== ENCOUNTER → 2023-07-17 14:37 | Outpatient (CLI) | payer MEDICARE, OTHER, SELFPAY ==
--- NOTE | 2023-07-17 14:38 | DI.MG.S_ITS ---
BILATERAL DIGITAL SCREENING MAMMOGRAM 3D/2D WITH CAD: 07/17/2023 CLINICAL: Routine screening. Personal history of left breast cancer. Family history of breast cancer. Comparison is made to exams dated: 07/12/2022 mammogram, 06/12/2021 mammogram, and 06/04/2020 mammogram - [facility]. Both breasts are heterogeneously dense, which may obscure small masses (category c / 51-75% glandular tissue). Current study was also evaluated with a Computer Aided Detection (CAD) system. There are benign post operative findings in the left breast. No significant masses, calcifications, or other findings are seen in either breast. There has been no significant interval change. IMPRESSION: BENIGN There is no mammographic evidence of malignancy. A 1 year screening mammogram is recommended. This exam was interpreted at Station ID: [id number]. NOTE: For mammograms, a report in lay terms will be sent to the patient. Approximately 15% of breast malignancies will not be visualized mammographically. In the management of a palpable breast mass, a negative mammogram must not discourage biopsy of a clinically suspicious lesion. Electronically Signed By: Justa Vicente M.D. esb/:07/23/2023 08:30:13 copy to: Kiara Pemberton letter sent: Normal Exam ACR BI-RADS Category 2: Benign Finding(s) 3342F
== END ==
PROVIDERS: PCP Student in an Organized Health Care Education/Training Program; Referring Provider Internal Medicine Hematology & Oncology; Visit Provider Internal Medicine Hematology & Oncology
DX: Z12.31 Encounter for screening mammogram for malignant neoplasm of breast (principal); C50.912 Malignant neoplasm of unspecified site of left female breast
CPT/HCPCS: 77063; 77067

== ENCOUNTER → 2023-12-18 12:05 | Outpatient (CLI) | payer MEDICARE, OTHER, SELFPAY | PROVIDERS: PCP Student in an Organized Health Care Education/Training Program; Visit Provider Nurse Practitioner Family | DX: R35.0 Frequency of micturition (principal) | CPT/HCPCS: 87086 ==

== ENCOUNTER → 2024-03-15 11:27 | Outpatient (CLI) | payer MEDICARE, OTHER, SELFPAY ==
[2024-03-15 12:10] LABS: Influenza A - CEPHEID Flu A NEGATIVE (NEGATIVE); Influenza B - CEPHEID Flu B NEGATIVE (NEGATIVE); Respiratory Syncytial Virus Negative (Negative)
[2024-03-15 12:11] LABS: COVID-19 CEPHEID 4-PLEX PCR Negative (Negative)
== END ==
PROVIDERS: PCP Student in an Organized Health Care Education/Training Program; Visit Provider Physician Assistant Surgical
DX: R05.9 Cough, unspecified (principal)
CPT/HCPCS: 0241U

== ENCOUNTER → 2024-05-04 10:00 | Outpatient (CLI) | payer MEDICARE, OTHER, SELFPAY ==
--- NOTE | 2024-05-04 10:03 | DI.RAD.S_ITS ---
PROCEDURE: XR DEXA AXIAL SKELETON INDICATIONS: postmenopausal COMPARISON: [facility], CR, XR DEXA AXIAL SKELETON, 01/14/2019, 14:56. FINDINGS: Lumbar Spine: Bone mineral density 1.008 g/cm2, T score -0.4, unchanged. Left Hip: Bone mineral density 0.707 g/cm2, T score -1.9, compared to -1.7. Left Femoral Neck: Bone mineral density 0.783 g/cm2, T score -0.6, compared to -0.7. Right Hip: Bone mineral density 0.725 g/cm2, T score -1.8, compared to -1.5. Right Femoral Neck: Bone mineral density 0.711 g/cm2, T score -1.2, compared to -1.2. Fracture Risk Calculation (when applicable): 10-year fracture risk of a major osteoporotic fracture 12% and of a hip fracture 2.8% compared to 17% and 3% respectively.. (T score greater or equal to -1.0 to: NORMAL) (T score from -1.1 to -2.4: OSTEOPENIA) (T score less than or equal to -2.5: OSTEOPOROSIS) IMPRESSION: Moderate osteopenia slightly progressive in the left hip as well as mildly progressive in the right hip. Follow-up guidelines as follows: Osteoporosis: Consider a repeat DEXA and Vertebral Fracture Assessment (VFA) exam in 2 years or sooner if medically necessary, to reassess this patient's status. Osteopenia: Consider a repeat DEXA in 2-3 years to reassess this patient's status, or if there is a new clinical indication. Normal: Consider a repeat DEXA in 5 years or sooner, or if there is a new clinical indication. All treatment decisions require clinical judgment and consideration of individual patient factors, including patient preferences, comorbidities, previous drug use, risk factors not captured in the FRAX model (e.g., frailty, falls, vitamin D deficiency, increased bone turnover, interval significant decline in bone density ) and possible under- or over-estimation of fracture risk by FRAX. In addition, the NOF Guide recommends that FDA-approved medical therapies be considered in postmenopausal women and men age >= 50 years with a: * Hip or vertebral (clinical or morphometric) fracture * T-score of <=-2.5 at the spine or hip * Ten-year fracture probability by FRAX of >= 3% for hip fracture or >=20% for major osteoporotic fracture. People with diagnosed cases of osteoporosis or at high risk for fracture should have regular bone mineral density tests. For patients eligible for Medicare, routine testing is allowed once every 2 years. The testing frequency can be increased to one year for patients who have rapidly progressing disease, those who are receiving or discontinuing medical therapy to restore bone mass, or have additional risk factors. Dictated by: Tiffanie Garcias M.D. on 05/04/2024 at 17:25 Approved by: Tiffanie Garcias M.D. on 05/04/2024 at 17:27
[2024-05-04 11:23] LABS: Hematocrit 37.8 % (36-46); Hemoglobin 12.8 g/dL (12.0-16.0); Mean Corpuscular HGB Conc 33.8 % (30-36); Mean Corpuscular Volume 94.8 fL (80-100); Platelet Count 169 X10^3/uL (150-400); Red Blood Cell Count 3.98 X10^6/uL (4.0-5.2); Red Cell Distribution Width 14.5 % (11.6-14.8); White Blood Cell Count 4.4 X10^3/uL (4.5-11.0)
[2024-05-04 11:45] LABS: Alanine Aminotransferase 13 IU/L (<35); Albumin 3.7 g/dL (3.5-5.0); Albumin Globulin Ratio 1.1 (1.0-2.8); Alkaline Phosphatase 63 U/L (38-126); Aspartate Aminotransferase 22 IU/L (14-36); BUN Creatinine Ratio 20.5 (6-22); Bilirubin Total 0.5 mg/dL (0.2-1.3); Blood Urea Nitrogen 18 mg/dL (7-17); Calcium 9.3 mg/dL (8.4-10.2); Carbon Dioxide 27 mmol/L (22-32); Chloride 109 mmol/L (98-107); Cholesterol 164 mg/dL (140-199); Estimated Glomerular Filt Rate > 60 mL/min (>60); Globulin 3.4 g/dL (1.7-4.1); Glucose 94 mg/dL (80-110); HDL Cholesterol 61 mg/dL (40-60); HEMOLYSIS < 15 (0-50); LDL Cholesterol Calculated 87 mg/dL (<100); Potassium 4.8 mmol/L (3.4-5.1); Sodium 137 mmol/L (137-145); Total Protein 7.1 g/dL (6.3-8.2); Triglycerides 80 mg/dL (35-150)
[2024-05-04 12:21] LABS: TSH w/ Reflex to FT4 2.63 uIU/mL (0.47-4.68)
== END ==
LOC: RAD 10:01
PROVIDERS: PCP Internal Medicine; Referring Provider Internal Medicine; Visit Provider Internal Medicine
DX: Z85.3 Personal history of malignant neoplasm of breast; E78.2 Mixed hyperlipidemia; M85.89 Other specified disorders of bone density and structure, multiple sites
CPT/HCPCS: 36415; 77080; 80053; 80061; 84443; 85027

== ENCOUNTER → 2024-08-05 15:49 | Outpatient (CLI) | payer MEDICARE, OTHER, SELFPAY ==
--- NOTE | 2024-08-05 15:50 | DI.MG.S_ITS ---
BILATERAL DIGITAL SCREENING MAMMOGRAM 3D/2D WITH CAD: 08/05/2024 CLINICAL: Routine screening. Family history of breast cancer. Breast cancer. Comparison is made to exams dated: 08/05/2024 mammogram, 07/17/2023 mammogram, 07/12/2022 mammogram, 02/06/2022 mammogram, 07/05/2021 mammogram, and 06/12/2021 mammogram - [facility]. The breasts are heterogeneously dense, which may obscure small masses (category c / 51-75% glandular tissue). Current study was also evaluated with a Computer Aided Detection (CAD) system. There are benign post operative findings in the left breast. No significant masses, calcifications, or other findings are seen in either breast. There has been no significant interval change. IMPRESSION: BENIGN There is no mammographic evidence of malignancy. A 1 year screening mammogram is recommended. This exam was interpreted at Station ID: [id number]. NOTE: For mammograms, a report in lay terms will be sent to the patient. Approximately 15% of breast malignancies will not be visualized mammographically. In the management of a palpable breast mass, a negative mammogram must not discourage biopsy of a clinically suspicious lesion. Electronically Signed By: Justa Vicente M.D., Ph.D. keturah/mahesh:08/07/2024 09:54:10 copy to: Kiara Pemberton copy to: SATHISH HURTADO letter sent: Normal Exam ACR BI-RADS Category 2: Benign
== END ==
PROVIDERS: PCP Internal Medicine; Referring Provider Internal Medicine; Visit Provider Internal Medicine
DX: Z12.31 Encounter for screening mammogram for malignant neoplasm of breast (principal); Z80.3 Family history of malignant neoplasm of breast; R92.333 Mammographic heterogeneous density, bilateral breasts
CPT/HCPCS: 77063; 77067

== ENCOUNTER → 2024-10-13 12:12 | Outpatient (CLI) | payer MEDICARE, OTHER, SELFPAY ==
--- NOTE | 2024-10-13 12:13 | DI.MRI.S_ITS ---
PROCEDURE: MR LUMBAR SPINE WO CON INDICATIONS: Spondylosis without myelopathy or radiculopathy, l TECHNIQUE: Noncontrast sagittal T1 spin echo and T2 fast echo, sagittal STIR, and T2 fast spin echo through the lumbar spine. In cases with scoliosis, additional coronal T2 fast spin echo may be performed. COMPARISON: None. FINDINGS: Image quality: Excellent Moderate dextroscoliosis of the thoracolumbar junction, centered at L2 vertebral body. Grade 1 anterolisthesis of L5 on S1. Multilevel fibrovascular endplate change of the lumbar spine, most pronounced and severe at L2-3. Vertebral body height of the lumbar spine are well maintained. Multilevel disc bulge and disc desiccation. Conus terminates at the level of T12-L1, and is unremarkable. Right neural foraminal stenosis: Mild at L3-4, L4-5. Left neural foraminal stenosis: Mild at L2-3, moderate at L3-4. Axial images: T12-L1: Mild bilateral facet arthropathy. No central canal stenosis. L1-2: Mild bilateral facet arthropathy. No central canal stenosis. L2-3: Mild bilateral facet arthropathy. No central canal stenosis. L3-4: Moderate right, mild left facet arthropathy. No central canal stenosis. L4-5: Disc bulge. Mild bilateral facet arthropathy. No central canal stenosis. L5-S1: Disc bulge. Mild bilateral facet arthropathy. No central canal stenosis. Visualized sacrum is intact. No abdominal aortic aneurysm. IMPRESSION: 1. Multilevel degenerative changes of the lumbar spine, most pronounced at L3-4, where there is mild right and moderate left neural foraminal stenosis. 2. No central canal stenosis in the lumbar spine. 3. Moderate dextroscoliosis at the thoracolumbar junction. Dictated by: Charley Roach M.D. on 10/13/2024 at 14:08 Approved by: Charley Roach M.D. on 10/13/2024 at 14:16
== END ==
PROVIDERS: PCP Internal Medicine; Referring Provider Physical Medicine & Rehabilitation; Visit Provider Physical Medicine & Rehabilitation
DX: M47.816 Spondylosis without myelopathy or radiculopathy, lumbar region (principal); M47.817 Spondylosis without myelopathy or radiculopathy, lumbosacral region; M48.061 Spinal stenosis, lumbar region without neurogenic claudication; M41.9 Scoliosis, unspecified
CPT/HCPCS: 72148

== ENCOUNTER → 2025-04-29 09:29 | Outpatient (CLI) | payer MEDICARE, OTHER, SELFPAY ==
[2025-04-29 10:11] LABS: Aspartate Aminotransferase 24 IU/L (14-36); BUN Creatinine Ratio 24.7 (6-22); Blood Urea Nitrogen 21 mg/dL (7-17); Calcium 9.5 mg/dL (8.4-10.2); Carbon Dioxide 26 mmol/L (22-32); Chloride 108 mmol/L (98-107); Cholesterol 194 mg/dL (140-199); Estimated Glomerular Filt Rate > 60 mL/min (>60); Glucose 85 mg/dL (70-99); HDL Cholesterol 61 mg/dL (40-60); HEMOLYSIS < 15 (0-50); LDL Cholesterol Calculated 119 mg/dL (<100); Potassium 4.7 mmol/L (3.4-5.1); Sodium 139 mmol/L (137-145); Triglycerides 70 mg/dL (35-150)
[2025-04-29 12:31] LABS: Appearance Urine UA CLEAR; Bilirubin Urine UA NEGATIVE (NEGATIVE); Color Urine UA YELLOW; Glucose Urine UA NEGATIVE (Negative); Ketones Urine UA NEGATIVE (NEGATIVE); Leukocyte Esterase Urine UA TRACE (NEGATIVE); Nitrite Urine UA POSITIVE (Negative); Occult Blood Urine UA TRACE-INTACT (Negative); Protein Urine UA NEGATIVE (Negative); Specific Gravity Urine UA 1.025 (1.000-1.035)
[2025-04-29 12:34] LABS: pH Urine UA 5.5 (4.5-8.0)
[2025-04-29 12:35] LABS: RBC Urine 0-1/HPF (0-5/HPF); Urine Volume 10mL (unspun); WBC Urine 1-5/HPF (0-5/HPF)
[2025-04-29 12:36] LABS: Bacteria Urine Many (>30); Culture Indicated Urine Specimen Cultured; Squamous Epithelial Cell Urine 1-5 /HPF (0-5/HPF)
== END ==
PROVIDERS: PCP Internal Medicine; Referring Provider Internal Medicine; Visit Provider Internal Medicine
DX: E78.2 Mixed hyperlipidemia (principal); R32 Unspecified urinary incontinence
CPT/HCPCS: 36415; 80048; 80061; 81001; 84450; 87077; 87086

== ENCOUNTER → 2025-08-09 14:38 | Outpatient (CLI) | payer MEDICARE, OTHER, SELFPAY ==
--- NOTE | 2025-08-09 14:40 | DI.MG.S_ITS ---
MM screening mammo BI: 08/09/2025. BI-RADS: 2 CLINICAL: 85-year old female for bilateral screening mammogram. No Tyrer-Cuzick risk score calculation due to the patient's personal history of breast cancer. Patient reports a history of left breast carcinoma diagnosed at age 77. Status-post left lumpectomy with hormonal therapy. Current reported family history of breast cancer: mother. The patient had a prior left breast biopsy. PRIOR EXAMS 08/05/2024, 07/17/2023, 07/12/2022, 02/06/2022, MAMMOGRAPHY TECHNIQUE: 2D and 3D (tomosynthesis) digital mammographic views obtained, with additional images as needed for full coverage. Current study was also evaluated with a Computer Aided Detection (CAD) system. DENSITY C. The breasts are heterogeneously dense, which may obscure small masses. MAMMOGRAPHY FINDINGS Right: Benign-appearing calcifications noted on the right. There are no suspicious masses, calcifications, or other findings in the breast. Left: Surgical clips present on the left. Benign-appearing calcifications and post-surgical changes noted on the left. There are no suspicious masses, calcifications, or other findings in the breast. IMPRESSION: * No evidence of malignancy with benign findings. RECOMMENDATIONS Bilateral * Annual screening mammography. OVERALL ASSESSMENT CATEGORY BI-RADS-2: Benign. The [employer] recommends annual screening mammography beginning at age 40 for women with average risk of breast cancer. ELECTRONICALLY SIGNED: Markel Ness M.D. on 08/10/2025 at 09:57:54 AM PT Interpreting Station ID: [id number]
== END ==
LOC: MAMMO 14:39
PROVIDERS: PCP Internal Medicine; Referring Provider Internal Medicine; Visit Provider Internal Medicine
DX: Z12.31 Encounter for screening mammogram for malignant neoplasm of breast (principal); R92.333 Mammographic heterogeneous density, bilateral breasts; Z85.3 Personal history of malignant neoplasm of breast; Z80.3 Family history of malignant neoplasm of breast
CPT/HCPCS: 77063; 77067